=== PATIENT | male | born 1990 | race Hispanic/Latino ===

== ENCOUNTER 2016-04-22 19:40 | Emergency (ER) | payer OTHER ==
[~2016-04-22] VITALS: Ht 174 cm; Wt 90.7 kg
[~2016-04-22 19:40] MED LIST: AMOXIL500 MG PO; LIORESAL 10MG T10 MG PO; PERCOCET 325 MG1 TA2 PO; TRAMADOL50 MG PO
[2016-04-22 20:09] VITALS: BP 125/75
--- NOTE | 2016-04-22 20:59 | ED THROAT/DENTAL COMPLAINT ---
History of Present Illness General Chief Complaint: Sore Throat, Dental Pain Stated Complaint: DENTAL PAIN Source: patient Exam Limitations: no limitations Vital Signs & Intake/Output Vital Signs & Intake/Output Vital Signs Date Time Temp Pulse Resp B/P Pulse O2 O2 Flow FiO2 Ox Delivery Rate 04/22 2008 97.8 90 20 125/75 98 Room Air ED Intake and Output 04/23 0000 04/22 1200 Intake Total Output Total Balance Patient 200 lb Weight Allergies Coded Allergies: NO KNOWN ALLERGIES (04/22/16) Reconcile Medications Amoxicillin (Amoxil) 500 MG CAP 1 TAB PO TID DENTAL ABSCESS Augmentin (Augmentin 500-125 Tablet) 500 MG-125 MG TABLET 1 TAB PO BID gum ascess Hydrocodone/Acetaminophen (Vicodin 5-300 MG Tablet) 5 MG-300 MG TABLET 1 TAB PO Q4-6 PAIN Ibuprofen 600 MG TABLET 1 TAB PO TID PRN PAIN with food OXYCODONE HCL/ACETAMINOPHEN (Percocet 5-325 MG Tablet) 325 MG/5 MG TAB 1-2 TAB PO Q4-6 PRN PRN PAIN Triage Note: TRIAGE: PT TO ER C/C DENTAL PAIN SINCE LUNCH TIME TODAY. HAS APPT WITH DENTIST TOMORROW BUT COULDN'T WAIT. Triage Nurses Notes Reviewed? yes Onset: Abrupt Duration: constant Timing: single episode today Severity: severe Severity Numbers: 7 HPI: Patient is a 25-year-old male with past medical history poor dental hygiene who presents emergency room stating that while eating today he noticed take gradual onset of worsening left lower tooth pain with surrounding gum swelling. Patient states that eating makes worse. Denies any fever or chills discharge or fracture of tooth. Patient has not taken any medications for symptoms. Patient does have follow-up appointment tomorrow with his dentist (MARILIN OSUNA) Past History Travel History Traveled to [place] past 21 day No Medical History Any Pertinent Medical History? none Neurological: NONE EENT: NONE Cardiovascular: NONE Respiratory: NONE Gastrointestinal: NONE Hepatic: NONE Renal: NONE Musculoskeletal: NONE Psychiatric: NONE Endocrine: NONE Blood Disorders: NONE Cancer(s): NONE RADIO OPERATOR/Reproductive: NONE Surgical History Surgical History: non-contributory Psychosocial History What is your primary language Syriac Tobacco Use: Current Daily Use Daily Tobacco Use Amount/Type: => 5 Cigarettes daily ETOH Use: occasional use Illicit Drug Use: marijuana Family History Hx Contributory? No (MARILIN OSUNA) Review of Systems Review of Systems Constitutional: Reports: no symptoms. EENTM: Reports: see HPI, tooth pain. Respiratory: Reports: no symptoms. Cardiovascular: Reports: no symptoms. GI: Reports: no symptoms. Genitourinary: Reports: no symptoms. Musculoskeletal: Reports: no symptoms. Skin: Reports: no symptoms. Neurological/Psychological: Reports: no symptoms. Hematologic/Endocrine: Reports: no symptoms. Immunologic/Allergic: Reports: no symptoms. All Other Systems: Reviewed and Negative (MARILIN OSUNA) Physical Exam Physical Exam General Appearance: no apparent distress Mouth/Throat: normal mouth inspection, dental tenderness Comments: Well-developed well-nourished person in no acute distress HEENT: Normal EENT exam, extraocular motion intact, no nystagmus. Pupils equally round and reactive to light and accommodation. Nose is atraumatic. External auditory canal and Tympanic membranes clear. Pharynx normal. No swelling or edema. Neck: Supple, no lymphadenopathy, normal range of motion without pain or tenderness Back: Nontender, no CVA tenderness. Cardiovascular: Regular rate and rhythms no murmurs rubs or gallops, normal JVP Respiratory: Chest nontender. No respiratory distress.breath sounds clear to auscultation bilaterally Extremity: No edema, no calf tenderness to palpation, normal and equal pulses. Neuro: Alert oriented x3, motor sensory normal, Skin: No appreciable rash on exposed skin, skin is warm and dry. Psych: Mood and affect is normal, memory and judgment is normal. Diagram Dental: 1) point tenderness upon percussion mild surrounding gum swelling with no active discharge Noted surrounding poor dental hygiene and gingivitis Core Measures ACS in differential dx? No Severe Sepsis Present: No Septic Shock Present: No (MARILIN OSUNA) Progress Differential Diagnosis: aspirated tooth, carious tooth, epiglottitis, Ludwigs angina, meningitis, odontogenic abscess, bib-tonsillar abscess, pharyngeal for. body, stomatitis/gingivitis, strep pharyngitis, tooth fracture Plan of Care: Patient has no concern at this time of LUDWIGS angina or peritonsillar abscess. Patient does have mild surrounding swelling to the tenderness percussed with palpation and he was strongly advised to follow up with his dental appointment tomorrow and he will comply. Patient was able tolerate by mouth on discharge (MARILIN OSUNA) Departure Departure Disposition: HOME OR SELF CARE Condition: Stable Clinical Impression Primary Impression: Pain, dental Secondary Impressions: Gum abscess Referrals: BELEM WOODSON,SHRAVAN Hidalgo (PCP/Family) Additional Instructions: As discussed begin the prescription of ibuprofen as directed for pain and inflammation and begin the prescription of Vicodin for breakthrough pain relief. Begin the prescription of Augmentin as directed for the full course to prevent infection. Prescriptions are waiting at [facility] pharmacy. Follow-up with your dentist appointment tomorrow for further evaluation and treatment. If symptoms worsen return to emergency room Departure Forms: Customer Survey General Discharge Information Prescriptions: Current Visit Scripts Augmentin (Augmentin 500-125 Tablet) 1 TAB PO BID #14 TAB Hydrocodone/Acetaminophen (Vicodin 5-300 MG Tablet) 1 TAB PO Q4-6 #5 TAB Ibuprofen 1 TAB PO TID PRN PAIN #12 TAB with food (HEELN ESPINAL,MARILIN) PA/DIE REPAIRER TRIMMER DIES Co-Sign Statement Statement: ED Attending supervision documentation- [] I saw and evaluated the patient. I have also reviewed all the pertinent lab results and diagnostic results. I agree with the findings and the plan of care as documented in the PA's/DIE REPAIRER TRIMMER DIES's documentation. [X] I have reviewed the ED Record and agree with the PA's/DIE REPAIRER TRIMMER DIES's documentation. [] Additions or exceptions (if any) to the PAs/DIE REPAIRER TRIMMER DIES's note and plan are summarized below: [] (VARINDER WOODSON,EMMA [place])
[2016-04-22] MEDS ORDERED: AUGMENTIN 500-1 EACH PO (21:07)
[2016-04-22] MEDS ORDERED: VICODIN 5-3001 EACH PO (21:07)
[2016-04-22] MEDS ORDERED: IBUPROFEN600 M1 PO (21:07)
== END 2016-04-22 21:10 ==
LOC: ERH 19:40
DX: K05.319 Chronic periodontitis, localized, unspecified severity (principal)